=== PATIENT | female | born 1935 | race Caucasian/White ===

== ENCOUNTER → 2023-01-06 | Outpatient (CLI) | payer MEDICARE, BC | END | disposition home or self-care (01) | LOC: RESCLI 08:15 | PROVIDERS: ATTEND Student in an Organized Health Care Education/Training Program | DX: E78.00 Pure hypercholesterolemia, unspecified (principal); I25.700 Atherosclerosis of coronary artery bypass graft(s), unspecified, with unstable angina pectoris; K21.9 Gastro-esophageal reflux disease without esophagitis; E55.9 Vitamin D deficiency, unspecified; R10.9 Unspecified abdominal pain; I10 Essential (primary) hypertension; K59.00 Constipation, unspecified; H81.10 Benign paroxysmal vertigo, unspecified ear; Z98.890 Other specified postprocedural states; Z88.8 Allergy status to other drugs, medicaments and biological substances; Z88.5 Allergy status to narcotic agent; Z91.010 Allergy to peanuts; Z79.02 Long term (current) use of antithrombotics/antiplatelets; Z79.899 Other long term (current) drug therapy ==